=== PATIENT | female | born 1950 | race Caucasian/White ===

== ENCOUNTER → 2020-07-01 | Emergency (ER) | payer MEDICARE, OTHER ==
[~2020-07-01] VITALS: Ht 157.5 cm; Wt 68.0 kg
[~2020-07-01] MED LIST: BENA20TA54 PO; CEFDINIR 300 MG CAPSULE ONE; CEFDINIR 300 MG CAPSULE PO ONE; DILT120C80 PO; DIPH25CA61 PO; DIPHENHYDRAMINE 25 MG CAPSULE PO ONE; DIPHENHYDRAMINE 50 MG CAPSULE ONE; DIPHENHYDRAMINE 50 MG CAPSULE PO ONE; DULO30CA2 PO; LEVO175T5 PO; LYSI500T8 PO; MELO15TA24 PO; MELOXICAM 15 MG TABLET PO PRN; ONDA4TAB7 PO; PANT40TA6 PO; PANTOPRAZOLE 20MG TABLET ONE; PANTOPRAZOLE 40MG TABLET PO ONE; PLEASE ENTER ALLERGIES MC SCH; POTA10CA PO; QUET300T PO; QUETIAPINE 100MG TABLET ONE; QUETIAPINE 200 MG TABLET PO SCH; RANITIDINE PO; RISP1TAB3 PO; RISPERIDONE 2 MG TABLET ONE; ROSU40TA PO; TRIA1CAP3 PO
--- NOTE | 2020-07-01 18:37 | NUR ---
NAIMA CALVERT, PT WITH HX OF DEMENTIA. WAS IN RETIREMENT IN [place], SHE GOT ON PLANE TO FLY TO [place] TO SEE HER IN [place]. PT [id number] ON ARRIVAL, NOT LH. PT STATES "I DONT NEED TO BE HERE" PER EMS REPORT, PTS PSYCHOLOGIST STATES PT IS UNABLE TO CARE FOR HERSELF.
--- NOTE | 2020-07-01 18:41 | NUR ---
OR ASSISTANT CALLED SW TO COME SEE PT.
--- NOTE | 2020-07-01 18:49 | NUR ---
Bedside report from Chelo RN, pt resting on NAD. STEPHANIE jungTM.
--- NOTE | 2020-07-01 18:55 | NUR ---
pt resting on gurney, updated on POC, given additional warm blanket for comfort, NAD, VSS. WCTM. waiting on social work.
[2020-07-01 19:50] LABS: BASOPHILS # (AUTO) 0.03 x10^3/uL (0-0.1); BASOPHILS % (AUTO) 0 % (0-1); EOSINOPHILS # (AUTO) 0.01 x10^3/uL (0-0.4); EOSINOPHILS % (AUTO) 0 % (1-7); LYMPHOCYTES # (AUTO) 1.42 x10^3/uL (1-3.4); LYMPHOCYTES % (AUTO) 17 % (22-44); MD NO; MEAN CORPUSCULAR HEMOGLOBIN 29.4 pg (27.0-34.8); MEAN CORPUSCULAR HGB CONC 32.8 g/dL (32.4-35.8); MEAN CORPUSCULAR VOLUME 89.7 fL (80-100); MEAN PLATELET VOLUME 8.5 fL (7.4-10.4); MONOCYTES # (AUTO) 0.62 x10^3/uL (0.2-0.8); MONOCYTES % (AUTO) 7 % (2-9); NEUTROPHILS # (AUTO) 6.28 x10^3/uL (1.8-6.8); NEUTROPHILS % (AUTO) 75 % (42-75); PLATELET COUNT 272 x10^3/uL (130-400); RED BLOOD COUNT 4.95 x10^6/uL (3.82-5.3); RED CELL DISTRIBUTION WIDTH 13.1 % (9.6-15.2)
[2020-07-01 19:54] LABS: ALBUMIN 3.8 g/dL (3.4-5.0); ANION GAP 5 mmol/L (5-15); CALCIUM 9.7 mg/dL (8.5-10.1); CHLORIDE 106 mmol/L (98-107)
--- NOTE | 2020-07-01 19:54 | NUR ---
PT AMBULATED TO AND FROM RESTROOM WITH A SMOOTH AND STEADY GAIT. UA SENT TO LAB, PT BACK TO [facility] IRBY, APPEARS COMFORTABLE. WCTM. WAITING FOR LAB RESULTS.
[2020-07-01 19:57] LABS: ALANINE AMINOTRANSFERASE 25 U/L (12-78); ALKALINE PHOSPHATASE 94 U/L (45-117); BILIRUBIN,TOTAL 0.5 mg/dL (0.2-1.0); CREATININE 0.91 mg/dL (0.55-1.02); TOTAL PROTEIN 7.5 g/dL (6.4-8.2)
--- NOTE | 2020-07-01 19:57 | NUR ---
RN CALLED [facility]ENE PER PT AND SOCIAL WORK REQUEST. REPORTS THAT PT IS UNWELCOME TO COME VISIT HIM IN [place] SHE HAD PLANNED. GENES # [id number]
--- NOTE | 2020-07-01 20:57 | NUR ---
pt placed on legal hold. family contacted and states pt is unsafe and has a psychiatric history. pt belongs sandals, pants, bra, shirt, purse) placed in 2/2 bags in locker and labelled. pt provided meal per request. MIRIAN, ABELARDOS, WCTM. L2K
[2020-07-01 20:58] LABS: SALICYLATE LEVEL < 1.7 mg/dL (2.8-20.0)
[2020-07-01 21:13] LABS: MICROSCOPIC INDICATED
[2020-07-01 21:14] LABS: AMPHETAMINE SCREEN, URINE Negative (Negative); BARBITURATE SCREEN, URINE Negative (Negative); BENZODIAZEPINE SCREEN, URINE Negative (Negative); CANNABINOID SCREEN, URINE Negative (Negative); COCAINE SCREEN, URINE Negative (Negative); METHADONE SCREEN, URINE Negative (Negative); OPIATE SCREEN, URINE Negative (Negative)
--- NOTE | 2020-07-01 21:33 | NUR ---
PT RESTING ON GURNEY. FINISHED EATING, DENIES ADDITIONAL NEEDS AT THIS TIME, BILATERALLY EQUAL CHEST RISE AND FALL. NAD, CALL LIGHT ON LAP, WC. SITTER REQUEST PLACED. PT TO BE TRASNFERRED ROOMS WHEN AVAILABLE. WCTM
--- NOTE | 2020-07-01 22:12 | NUR ---
TP RN: PER [facility] SUP, UNABLE TO ACCEPT PT. ON U NO FEMALE BEDS AVAILABLE.
--- NOTE | 2020-07-01 22:35 | NUR ---
VERONICA RN: RICCO FAXED TO ALL FACILITIES; AWAITING CONFIRMATION FAX.
--- NOTE | 2020-07-01 22:46 | NUR ---
Report received from SHAMEKA Hinojosa. This RN to assume care. Patient resting in [facility] with no complaints. Respirations even and unlabored. Room secured, belongings locked in cabinet, sitter outside.
--- NOTE | 2020-07-01 23:36 | NUR ---
Patient sleeping in rney. Respirations even and unlabored. Room secured, belongings locked in cabinet, sitter outside.
--- NOTE | 2020-07-01 23:38 | NUR ---
TP RN: PER [place] [facility] HAD CALLED AND REPORTED THAT THERE WAS AN ISSUE WITH INSURANCE #. THIS RN SPOKE WITH REGISTRATION; INSURANCE # WAS FIXED AND UPDATED FACESHEET RE-FAXED TO ALL FACILITIES.
--- NOTE | 2020-07-01 23:43 | NUR ---
MT: BI AT [facility] DENIED PT BECAUSE "SHE IS MEDICALLY COMPLEX W/ DEMENTIA"
--- NOTE | 2020-07-02 00:19 | NUR ---
Patient asking for sleeping medication. Medicated patient per mar. Patient attempting to sleep now. Room secured, belongings locked in cabinet, sitter outside room.
--- NOTE | 2020-07-02 01:05 | NUR ---
Patient sleeping in rney. Respirations even and unlabored. Room secured, belongings locked in cabinet, sitter outside.
--- NOTE | 2020-07-02 01:16 | NUR ---
MT: [facility] DENIED PT. PSYCH SUGGESTS SHE GO TO [facility].
--- NOTE | 2020-07-02 02:03 | NUR ---
Patient sleeping in rney. Respirations even and unlabored. Room secured, belongings locked in cabinet, sitter outside.
--- NOTE | 2020-07-02 03:25 | NUR ---
Patient sleeping in rney. Respirations even and unlabored. Room secured, belongings locked in cabinet, sitter outside.
--- NOTE | 2020-07-02 04:13 | NUR ---
Report given to SHAMEKA Corea. Patient care transferred.
--- NOTE | 2020-07-02 04:15 | NUR ---
Received report, assumed care of a 70 year old female to ED via [facility] for grave disability 2/2 dementia. Patient currently on psych hold. She is asleep yet rousable to voice. No complaints or request at this time. Sitter at bedside. STEPHANIEM.
--- NOTE | 2020-07-02 05:04 | NUR ---
PATIENT RESTING IN BED, ASLEEP YET ROUSABLE. SHE IS IN NO APPARENT DISTRESS. SITTER AT BEDSIDE. WILL MONITOR.
--- NOTE | 2020-07-02 06:11 | NUR ---
PATIENT RESTING IN BED, ASLEEP YET ROUSABLE. SHE IS IN NO APPARENT DISTRESS. SITTER AT BEDSIDE. WILL MONITOR.
--- NOTE | 2020-07-02 07:01 | NUR ---
RECEIVED REPORT FROM ASHLEY ALMENDAREZ RN. [facility] ON [facility]. SITTER REMAINS AT BEDSIDE. ROOM REMAINS SECURE.
--- NOTE | 2020-07-02 07:03 | NUR ---
HOSPITAL BED REQUESTED.
--- NOTE | 2020-07-02 08:41 | NUR ---
MEDS REQUESTED FROM PHARMACY.
--- NOTE | 2020-07-02 08:52 | NUR ---
PT MOVED FROM [facility] TO [facility] BED. NADN. STEWART. SITTER REMAINS AT BEDSIDE. ROOM REMAINS SECURE. PT PROVIDED W/ SI BREAKFAST TRAY.
[2020-07-02] MEDS: TRIAMTERENE-HCTZ 37.5/25 MG TABLET PO SCH (09:04)
[2020-07-02] MEDS: DULOXETINE 30 MG CAPSULE.DR PO SCH (09:04)
[2020-07-02] MEDS: RISPERIDONE 1 MG TABLET PO SCH ×2 (09:05→20:09)
[2020-07-02] MEDS: BENAZEPRIL 20 MG TABLET PO SCH (09:05)
[2020-07-02] MEDS: DILTIAZEM 120 MG CAP.ER.24H PO SCH (09:06)
[2020-07-02] MEDS: POTASSIUM CHLORIDE 10 MEQ TABLET.ER PO SCH (09:06)
[2020-07-02] MEDS: LEVOTHYROXINE 175 MCG TABLET PO SCH (09:06)
--- NOTE | 2020-07-02 09:30 | NUR ---
PT RESTING IN BED. NADN. SITTER REMAINS AT BEDSIDE. ROOM REMAINS SECURE.
--- NOTE | 2020-07-02 10:14 | NUR ---
PT RESTING IN BED. NADN. SITTER REMAINS AT BEDSIDE. ROOM REMAINS SECURE.
--- NOTE | 2020-07-02 10:27 | NUR ---
THROUGHPUT RN::SPOKE WITH [facility], WHO STATED THERE ARE NO BEDS AVAILABLE TODAY.
--- NOTE | 2020-07-02 11:04 | NUR ---
PT RESTING IN BED. NADN. SITTER REMAINS AT BEDSIDE. ROOM REMAINS SECURE.
--- NOTE | 2020-07-02 11:08 | NUR ---
THROUGHPUT RN::SPOKE WITH CAREY AT [facility], STATED SHE WAS DECLINED DR. MILLER DOES NOT FEEL [facility] IS APPROPRIATE GIVEN PT MED HX. SUGGESTED [facility].
--- NOTE | 2020-07-02 11:15 | NUR ---
CALLED [facility], LEFT MESSAGE TO CALL ED BACK ABOUT CONSIDERATION FOR ADMISSION.
--- NOTE | 2020-07-02 11:20 | NUR ---
THROUGHPUT RN::SPOKE WITH KELSIE AT [facility], STATED THEY ARE FULL WITH A WAIT LIST AT THIS TIME. WILL CALL IF A BED BECOMES AVAILABLE.
--- NOTE | 2020-07-02 11:38 | NUR ---
THROUGHPUT RN::[facility] CALLED BACK, SPOKE WITH LUCINDA, STATED UNABLE TO ACCEPT PT DUE TO HER HAVING OUT OF STATE INSURANCE, [place]. PT DENIED AT [facility]
--- NOTE | 2020-07-02 12:03 | NUR ---
MARILOU, PSYCH HEALTHCARE OR MEDICAL AT BEDSIDE.
--- NOTE | 2020-07-02 12:20 | NUR ---
PT RESTING IN BED. NADN. SITTER REMAINS AT BEDSIDE. ROOM REMAINS SECURE. SI LUNCH TRAY PROVIDED.
--- NOTE | 2020-07-02 13:30 | NUR ---
PT RESTING IN BED. NADN. SITTER REMAINS AT BEDSIDE. ROOM REMAINS SECURE. SI LUNCH TRAY PROVIDED.
--- NOTE | 2020-07-02 14:30 | NUR ---
PT RESTING IN BED. NADN. SITTER REMAINS AT BEDSIDE. ROOM REMAINS SECURE. SI LUNCH TRAY PROVIDED.
--- NOTE | 2020-07-02 15:30 | NUR ---
PT RESTING IN BED. NADN. SITTER REMAINS AT BEDSIDE. ROOM REMAINS SECURE. SI LUNCH TRAY PROVIDED.
--- NOTE | 2020-07-02 16:30 | NUR ---
PT RESTING IN BED. NADN. SITTER REMAINS AT BEDSIDE. ROOM REMAINS SECURE. SI LUNCH TRAY PROVIDED.
--- NOTE | 2020-07-02 17:06 | NUR ---
PT PROVIDED W/ SI DINNER TRAY. PT RESTING IN BED. NADN. SITTER REMAINS AT BEDSIDE. ROOM REMAINS SECURE.
--- NOTE | 2020-07-02 18:37 | NUR ---
PT RESTING IN BED. NADN. SITTER REMAINS AT BEDSIDE. ROOM REMAINS SECURE.
--- NOTE | 2020-07-02 18:48 | NUR ---
REPORT GIVEN TO ASHLEY SPRING RN.
--- NOTE | 2020-07-02 18:48 | NUR ---
BEDSIDE REPORT FROM JOS RN, PT CARE TRANSFERRED AT THIS TIME. PT LAYING ON GURNEY, NAD, SKIN COLOR P/W/D. PT ON LEGAL HOLD, DENIES SI/HI. PT EYES CLOSED, EVEN AND UNLABORED RESPIRATIONS BILATERALLY. SITTER IN LINE OF SIGHT, LEGAL HOLD PRECAUTIONS IN PLACE. WCTM.
[2020-07-02] MEDS: QUETIAPINE 100MG TABLET PO SCH (20:08)
--- NOTE | 2020-07-02 20:08 | NUR ---
pt medicated per dec, resting on gurney, NAD, appears comfortable, sitter in line of sight. pt on legal hold. WCTM.
--- NOTE | 2020-07-02 21:06 | NUR ---
Pt NAD, resting on hospital bed, eyes closed, lights dimmed for comfort, even and unlabored respirations, appears comfortable, denies additional needs at this time. WCTM. sitter in line of sight.
--- NOTE | 2020-07-02 21:57 | NUR ---
pt resting on hospital bed, NAD, eyes closed, even and unlabored respirations, sitter in line of sight. WCTM.
--- NOTE | 2020-07-02 23:04 | NUR ---
pt resting on hospital bed, NAD, eyes closed, even and unlabored respirations, sitter in line of sight. WCTM.
--- NOTE | 2020-07-03 00:06 | NUR ---
pt resting on hospital bed, NAD, eyes closed, even and unlabored respirations, sitter in line of sight. WCTM.
--- NOTE | 2020-07-03 01:08 | NUR ---
BREAK RN: Patient sleeping in hospital bed. Respirations even and unlabored. Room secured, belongings in locked cabinet, sitter outside.
--- NOTE | 2020-07-03 02:05 | NUR ---
pt sleeping on hospital bed, respirations noted to be equal bilaterally, pt nad, appears comfortable, sitter in line of sight, WCTM.
--- NOTE | 2020-07-03 03:18 | NUR ---
pt sleeping on hospital bed, respirations noted to be equal bilaterally, pt nad, appears comfortable, sitter in line of sight, WCTM.
--- NOTE | 2020-07-03 04:13 | NUR ---
pt sleeping on hospital bed, respirations noted to be equal bilaterally, pt nad, appears comfortable, sitter in line of sight, WCTM. breakfast meal tray ordered.
--- NOTE | 2020-07-03 05:30 | NUR ---
pt laying on hospital bed on back, no change in condition. NAD, sitter in line of sight. Eyes closed, appears comfortable. WCTM.
[2020-07-03] MEDS: LEVOTHYROXINE 175 MCG TABLET PO SCH (05:59)
--- NOTE | 2020-07-03 06:04 | NUR ---
REPORT TO VANESSA MYLES, PT CARE TRANSFERRED AT THIS TIME. PT RESTING ON [facility], STATES SHE WILL NEED TO GO TO THE RESTROOM SOON BUT NOT YET. MIRIAN. P/W/D. SITTER IN LINE OF SIGHT.
--- NOTE | 2020-07-03 06:49 | NUR ---
REPORT FROM JOS
--- NOTE | 2020-07-03 08:47 | NUR ---
PT RESTING, MEAL TRAY PROVIDED, REQUESTING SHOWER TODAY.
[2020-07-03] MEDS: BENAZEPRIL 20 MG TABLET PO SCH (09:00)
[2020-07-03] MEDS: TRIAMTERENE-HCTZ 37.5/25 MG TABLET PO SCH (09:00)
--- NOTE | 2020-07-03 09:29 | NUR ---
PT AMUBLATED TO BATHROOM W THERESA GAIT
[2020-07-03] MEDS: DULOXETINE 30 MG CAPSULE.DR PO SCH (09:39)
[2020-07-03] MEDS: RISPERIDONE 1 MG TABLET PO SCH ×2 (09:40→21:27)
[2020-07-03] MEDS: POTASSIUM CHLORIDE 10 MEQ TABLET.ER PO SCH (09:41)
[2020-07-03] MEDS: DILTIAZEM 120 MG CAP.ER.24H PO SCH (09:41)
--- NOTE | 2020-07-03 10:27 | NUR ---
MEDICATED PER ORDERS, PT RESTING.
--- NOTE | 2020-07-03 11:05 | NUR ---
PT SHOWERED W RN SUPERVISION, NEW LINENS PROVIDED. PT STATES SHE FEELS BETTER AFTER THE SHOWER.
--- NOTE | 2020-07-03 12:57 | NUR ---
i am assuming care of this pt from lio (sylwia) while she enjoys a lunch break. sbar was exchanged at the bedside.
--- NOTE | 2020-07-03 14:01 | NUR ---
LUMBER STACKER AT BEDSIDE DISCUSSING POC.
--- NOTE | 2020-07-03 14:45 | NUR ---
PER POWERHOUSE MECHANIC SUPERVISOR, SON WILL COME GET PT TOMORROW FOR DC
--- NOTE | 2020-07-03 15:25 | NUR ---
SON WILL BE PICKING UP PT AT 5 PM TUESDAY.
--- NOTE | 2020-07-03 16:30 | NUR ---
PT RESTING, GIVEN WATER
--- NOTE | 2020-07-03 17:30 | NUR ---
PT RESTING, SITTER PRESENT
--- NOTE | 2020-07-03 18:21 | NUR ---
PT GIVEN MEAL TRAY.
--- NOTE | 2020-07-03 19:00 | NUR ---
PT RESTING IN BED WITH NO COMPLAINTS, ATE DINNER, SITTER AT BEDSIDE, ROOM SECURE
--- NOTE | 2020-07-03 20:11 | NUR ---
PT RESTING IN BED WITH NO COMPLAINTS, SITTER AT BEDSIDE, ROOM SECURE
[2020-07-03] MEDS: QUETIAPINE 100MG TABLET PO SCH (21:27)
--- NOTE | 2020-07-03 22:38 | NUR ---
PT RESTING IN BED WITH NO COMPLAINTS, SITTER AT BEDSIDE, ROOM SECURE
--- NOTE | 2020-07-04 | NUR ---
PT RESTING IN BED WITH NO COMPLAINTS, SITTER AT BEDSIDE, ROOM SECURE
--- NOTE | 2020-07-04 00:39 | NUR ---
BREAK RN: PT RESTING IN ROOM. NO ACUTE DISTRESS NOTED. SITTER AT DOOR. WILL CONTINUE TO MONITOR WHILE PRIMARY RN IS ON BREAK.
--- NOTE | 2020-07-04 01:18 | NUR ---
REPORT RECEIVED FROM SHAMEKA CH
--- NOTE | 2020-07-04 02:00 | NUR ---
PATIENT RESTING IN BED/EVEN UNLABORED RESPIRATIONS NOTED AT THIS TIME, NO NOTED NEEDS AT THIS TIME. SITTER WITHIN VIEW OF PATIENT. WILL CONTINUE TO MONITOR.
--- NOTE | 2020-07-04 03:00 | NUR ---
PATIENT RESTING IN BED/EVEN UNLABORED RESPIRATIONS NOTED AT THIS TIME, NO NOTED NEEDS AT THIS TIME. SITTER WITHIN VIEW OF PATIENT. WILL CONTINUE TO MONITOR.
--- NOTE | 2020-07-04 04:00 | NUR ---
PATIENT RESTING IN BED/EVEN UNLABORED RESPIRATIONS NOTED AT THIS TIME, NO NOTED NEEDS AT THIS TIME. SITTER WITHIN VIEW OF PATIENT. WILL CONTINUE TO MONITOR.
--- NOTE | 2020-07-04 05:00 | NUR ---
PATIENT RESTING IN BED/EVEN UNLABORED RESPIRATIONS NOTED AT THIS TIME, NO NOTED NEEDS AT THIS TIME. SITTER WITHIN VIEW OF PATIENT. WILL CONTINUE TO MONITOR.
--- NOTE | 2020-07-04 06:21 | NUR ---
PATIENT RESTING IN BED/EVEN UNLABORED RESPIRATIONS NOTED AT THIS TIME, NO NOTED NEEDS AT THIS TIME. SITTER WITHIN VIEW OF PATIENT. WILL CONTINUE TO MONITOR.
--- NOTE | 2020-07-04 06:52 | NUR ---
REPORT GIVEN TO ONCOMING RN
--- NOTE | 2020-07-04 07:00 | NUR ---
REPORT FROM ASHLEY RN. PT RESTING ON HOSPITAL BED AT THIS TIME, VISIBLE CHEST RISE AND FALL NOTED, NAD. SI PRECAUTIONS OBSERVED
[2020-07-04 08:22] VITALS: BP 115/73
[2020-07-04] MEDS: RISPERIDONE 1 MG TABLET PO SCH (08:43)
[2020-07-04] MEDS: TRIAMTERENE-HCTZ 37.5/25 MG TABLET PO SCH (08:43)
[2020-07-04] MEDS: BENAZEPRIL 20 MG TABLET PO SCH (08:43)
[2020-07-04] MEDS: DILTIAZEM 120 MG CAP.ER.24H PO SCH (08:43)
[2020-07-04] MEDS: POTASSIUM CHLORIDE 10 MEQ TABLET.ER PO SCH (08:44)
[2020-07-04] MEDS: LEVOTHYROXINE 175 MCG TABLET PO SCH (08:45)
[2020-07-04] MEDS: DULOXETINE 30 MG CAPSULE.DR PO SCH (08:46)
--- NOTE | 2020-07-04 10:51 | NUR ---
PT CONTINUES TO REST ON BED, NAD NOTED. NO NEEDS AT THIS TIME
--- NOTE | 2020-07-04 13:05 | NUR ---
REPORT FROM CHLOÉ MYLES, ASSUMED CARE OF PT AT THIS TIME
--- NOTE | 2020-07-04 13:05 | NUR ---
REPORT GIVEN TO ARTEM MYLES
--- NOTE | 2020-07-04 15:02 | NUR ---
PT GIVEN SHOWER SUPPLIES AND ESCORTED TO SHOWER BY SITTER
--- NOTE | 2020-07-04 16:03 | NUR ---
SON HERE TO TAKE PT HOME, DC INSTRUCTIONS GIVEN AND RX GIVEN FOR 3 DAYS OF MEDICATIONS TO GET PT HOME TO [place].
== END ==
LOC: ED 20:56
DX: F29 Unspecified psychosis not due to a substance or known physiological condition (principal); N30.00 Acute cystitis without hematuria; F22 Delusional disorders; E78.5 Hyperlipidemia, unspecified; M19.90 Unspecified osteoarthritis, unspecified site; K21.9 Gastro-esophageal reflux disease without esophagitis; I10 Essential (primary) hypertension; E03.9 Hypothyroidism, unspecified; Z76.0 Encounter for issue of repeat prescription
CPT/HCPCS: 36415; 80053; 80307; 81001; 84443; 85025; 87077; 87086; 87186; 99285; Q0163